=== PATIENT | female | born 1970 | race Caucasian/White ===

== ENCOUNTER → 2017-07-13 | Outpatient (CLI) | payer BC ==
[~2017-07-13] MED LIST: CEPHALEXIN500 M1 PO; NO HOME MEDICATIONS
== END ==
LOC: MC.RAD 07:36
DX: Z12.31 Encounter for screening mammogram for malignant neoplasm of breast (principal)

== ENCOUNTER → 2020-03-04 | Outpatient (CLI) | payer BC | LOC: MC.RAD 07:07 | DX: Z12.31 Encounter for screening mammogram for malignant neoplasm of breast (principal); N64.9 Disorder of breast, unspecified ==

== ENCOUNTER → 2020-03-18 | Outpatient (CLI) | payer BC | LOC: MC.RAD 12:52 | DX: N60.02 Solitary cyst of left breast (principal) ==

== ENCOUNTER → 2021-08-31 | Outpatient (CLI) | payer BC | LOC: MC.RAD 08:45 | DX: Z12.31 Encounter for screening mammogram for malignant neoplasm of breast (principal) ==

== ENCOUNTER 2022-02-08 08:45 | Outpatient (RCR) | payer BC | END 2022-02-14 | disposition home or self-care (01) | LOC: WSPT | DX: M54.10 Radiculopathy, site unspecified (principal) ==

== ENCOUNTER → 2023-12-21 | Outpatient (CLI) | payer BC | LOC: MC.RAD 13:56 | DX: Z12.31 Encounter for screening mammogram for malignant neoplasm of breast (principal) ==